=== PATIENT | female | born 1970 | race Caucasian/White ===

== ENCOUNTER 2016-06-15 07:48 | Inpatient (IN) | payer OTHER ==
--- NOTE | 2016-06-12 09:09 | HP ---
DATE OF CLINIC: 06/03/2016 NILESH ALLRED : 1970 PLANNED PROCEDURE: Left Knee Unicompartmental Arthroplasty DATE OF PROCEDURE: June 15, 2016 SURGEON: Dr. Brian Melgar PCP: Dr. Chun Vickers HISTORY OF PRESENT ILLNESS Nilesh Allred is a 46 year old female. * Medication list reviewed with patient allergy list reviewed with patient. 46-year-old female known to me for degenerative disease of her left knee. This is primarily involving the medial compartment. A previous outside MRI scan is consistent with a possible radial tear of the body and posterior horn of the medial meniscus as well as medial compartment degenerative changes. She has some mild spurring of the patella as well as what are described as mild changes of the articular cartilage of the patellofemoral joint. When I saw her on 10/09/14 we discussed management options. She elected viscosupplementation which she completed in November of 2014 with mild improvement. Unfortunately overall her symptoms have progressed, primarily medial weightbearing related deep pain with some rest discomfort. It is much more notable at startup. Her mechanical symptoms are not as limiting. She does not have any radicular symptoms. No problems on the contralateral side. No hip pain. She is wondering about definitive management options including UKA vs TKA. We discussed both operative and non-operative management and she has elected to proceed with surgical intervention. She presents today preoperatively. 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 She is managed by an oncologist at [facility], Dr. Cervantes, with topical treatment. She also has hypothyroidism. She is a non-smoker. CURRENT MEDICATION * control Unknown Type Tablet 1 once a day 0 days, 0 refills * Gentamicin Sulfate 0.3 % Ointment as directed 7 days, 0 refills * Levothyroxine Sodium 88 MCG Tablet 1 once a day 90 days, 0 refills * Minocycline HCl 100 MG Tablet as directed 60 days, 0 refills * Spironolactone 100 MG Tablet 1 once a day 90 days, 0 refills * Targretin 1 % Gel as directed 30 days, 0 refills PAST MEDICAL/SURGICAL HISTORY Reported: Medical: A history of cancer lymphoma MF-T, history of Arthritis knees, hips, and back, and Thyroid Disorder on meds. Surgical / Procedural: Prior surgery Left ankle pinning 1983 pin in left ankle removed 2003. SOCIAL HISTORY Behavioral: Didn't quit. Never smoked. Smoking status: Never smoker. Alcohol: Alcohol 1-2 drinks a week and alcohol use a social drinker. Work: Occupation corporate staff accountant. ALLERGIES * Narcotic Pain Medicine FAMILY HISTORY 2 children living Family medical history Mother: osteoarthritis, rheumatoid arthritis Father: stroke, osteoarthritis, HBP, Thyroid disease, rheumatoid arthritis REVIEW OF SYSTEMS Systemic: No fever and no recent weight change. Head: No head symptoms. Cardiovascular: No cardiovascular symptoms. Pulmonary: No pulmonary symptoms. Gastrointestinal: No gastrointestinal symptoms. Psychological: No psychological symptoms. Skin: No skin lesions and no rash. PHYSICAL FINDINGS * Vitals taken 06/03/2016 09:23 am BP-Sitting R 121/73 mmHg 100 - 120/56 - 80 BP Cuff Size Regular Pulse Rate-Sitting 63 bpm 50 - 100 Temp-Oral 98.9 F 96 - 101 Height 68.5 in 59 - 69 Weight 151 lbs 98 - 183 Body Mass Index 22.6 kg/m2 Body Surface Area 1.82 m2 Pain Level 4 Ears, Nose, Throat: * ENT: normal. Lungs: * Clear to auscultation. Cardiovascular: Heart Rate And Rhythm: * Normal. Abdomen: * Normal. Neurological: Motor: * Dominant Hand = Left Hand. Patient is a well-developed, well-nourished female in no acute distress, normal-appearing mood and affect. She has a normal, symmetric, heel-to-toe gait, although stiff-legged, antalgic startup. On standing she has neutral alignment. Left knee exam shows skin integrity to be well-preserved. She does have an area separate from the knee and over the leg of some discoloration and thickened macular appearance that she describes as a portion of the presentation of her cutaneous lymphoma. She has a more significant area on the contralateral knee, otherwise no swelling or gross effusion. Motion is 5-120 degrees. She is tender over the medial aspect of the knee, mildly increased with Estrella's, non-focal. NT lateral and no pain with patellar compression. Patella tracks well. Ligamentous exam is intact for cruciates and collaterals. Mildly tender over the anteromedial proximal tibia. Calf is soft and NT. Distal light touch sensation and motor function are grossly intact and symmetric. Pulses are palpable. Gentle rotation of the hip is non-irritable. Contralateral knee shows non-irritable full motion. TESTS 4 views of the left knee were obtained 03/10/16 and show significant medial compartment narrowing with some progression compared to prior films from 08/22/14. Lateral compartment is relatively well preserved. Minimal spurring at the patellofemoral articulation. ASSESSMENT DJD, left knee, involving primarily the medial compartment. PREVIOUS TESTS * Test: CBC WITH DIFF Report Date: 05/20/2016 WBC 4.7 10*3/mL MCV 91.4 fL BASOPHIL 0.8 % RBC 4.41 10*6/uL NEUTROPHILS 54.1 % MCH 30.2 pg MCHC 33.0 g/dL RDW 12.4 % PLATELET COUNT 244 10*3/mL IMM NEUT % 0.2 % IMM NEUT # 0.0 10*3/mL MONOCYTES 5.9 % EOSINOPHIL 4.4 % High HCT 40.3 % HGB 13.3 g/L LYMPHOCYTE 34.6 % ANC 2.6 10*3/mL * Test: PROTHROMBIN TIME Report Date: 05/20/2016 PROTIME 10.4 s INR 0.99 * Test: PARTIAL THROMBOPLASTIN TIME Report Date: 05/20/2016 APTT 26.1 s * Test: URINALYSIS Report Date: 05/20/2016 GLUCOSE NEGATIVE PH,URINE 6.0 SPEC. GRAVITY 1.020 KETONE NEGATIVE NITRITE NEGATIVE BLOOD NEGATIVE BILIRUBIN NEGATIVE APPEARANCE CLEAR PROTEIN NEGATIVE COLOR YELLOW LEUK ESTERASE NEGATIVE UROBILINOGEN NORMAL * Test: COMPREHENSIVE METABOLIC PANEL Report Date: 05/20/2016 ALT/SGPT 10 U/L ALBUMIN 4.7 g/dL ALB/GLOB RATIO 1.7 BUN 16 mg/dL BUN/CREAT RATIO 18 CALCIUM 10.1 mg/dL GLUCOSE 140 mg/dL High CREATININE 0.9 mg/dL SODIUM 137 meq/L POTASSIUM 4.2 meq/L CHLORIDE 99 meq/L CARBON DIOXIDE 30 meq/L ANION GAP 12 meq/L TOT PROTEIN 7.4 g/dL GLOBULIN 2.7 g/dL BILI,TOTAL 1.2 mg/dL High AST/SGOT 16 U/L ALK PHOSPHATASE 55 U/L GFR 67 * Test: MRSA SCREEN Report Date: 05/21/2016 MRSA SCREEN NEGATIVE * Test: MSSA SCREEN Report Date: 05/21/2016 MSSA SCREEN NEGATIVE FOR STAPHYLOCOCCUS AUREUS THERAPY * Patient not eligible for fall risk assessment. PLAN * Unilateral primary osteoarthritis, left knee Physical Therapy: [facility] [phone] * OTHER TraMADol HCl 50 MG TABS, 1or 2 tablets every 4 to 6 hours as needed, 5 days, 0 refills CeleBREX 200 MG CAPS, 1 once a day, 30 days, 0 refills CeleBREX 200 MG CAPS, 1 once a day, 30 days, 0 refills * Knee replacement -partial,(unicompartmental arthroplasty) on the left Discussed with patient in detail the limitations, expectations as well as risks and possible complications of surgery including, but not limited to wound problems or infection, neurovascular injury, continued knee pain or dysfunction, including the possibility of prosthetic wear or failure over time that may require additional operative or non-operative treatment. Patient also realizes the perioperative risks including risks associated with anesthesia and would like to proceed. A full PAR conference was held, questions and concerns addressed and informed consent was obtained. Patient will be sent from my office for completion of the preoperative workup. Patient will enteric coated aspirin postoperatively for DVT prophylaxis as per risk stratification protocol.use Patient would like to perform their postop PT at [facility] with total knee arthroplasty protocol. CARE TEAM Chun Vickers MD Family Practice Rigo Mathew MD Dermatology [facility], [facility] JOSEY/sg
[2016-06-15] MEDS ORDERED: TRANEXAMIC ACID 1,000 MG in SODIUM CHLORIDE 0.9% 100 ML IV PRN (08:00)
[2016-06-15] MEDS ORDERED: CLONIDINE HCL 0.1 MG/24 HR (7 DAY PATCH) TD SCH (08:00)
[2016-06-15] MEDS ORDERED: CELECOXIB 200 MG CAPSULE PO ONE (08:00)
[2016-06-15] MEDS ORDERED: BUPIVACAINE 0.25% (MDV) 24 ML, MORPHINE SULFATE 8 MG, EPINEPHRINE 0.3 MG in SODIUM CHLO... IF PRN (08:00)
[2016-06-15] MEDS ORDERED: POLYMYXIN B SULFATE 500,000 UNITS, BACITRACIN 25,000 UNITS in SODIUM CHLORIDE 3 L IRRIG... IR PRN (08:00)
[2016-06-15] MEDS ORDERED: OXYCODONE HCL 10 MG TAB.SR PO ONE ×2 (08:00→08:53)
[2016-06-15] MEDS ORDERED: BUPIVACAINE 0.25% (MDV) 20 ML in SODIUM CHLORIDE 0.9% FLUSH 20 ML IF PRN (08:00)
[2016-06-15] MEDS ORDERED: GABAPENTIN 600 MG TABLET PO ONE (08:00)
[2016-06-15] MEDS ORDERED: CEFAZOLIN SODIUM 2 GRAM PREMIX 100 ML IV PRN (08:00)
[2016-06-15] MEDS ORDERED: FAMOTIDINE 20 MG TABLET PO ONE (08:00)
[2016-06-15] MEDS ORDERED: TRAMADOL HCL 50 MG TABLET PO ONE (08:00)
[2016-06-15] MEDS ORDERED: ONDANSETRON 4 MG/2ML 2 ML VIAL IV ONE (08:00)
[2016-06-15] MEDS ORDERED: LACTATED RINGERS 1,000 ML ONE (08:39)
[2016-06-15] MEDS ORDERED: IV START KIT ONE (08:40)
[2016-06-15] MEDS ORDERED: CEFAZOLIN SODIUM 2 GRAM PREMIX 100 ML IV ONE (08:40)
[2016-06-15] MEDS ORDERED: FENTANYL 100 MCG/2 ML VIAL ONE (08:45)
[2016-06-15] MEDS ORDERED: LIDOCAINE 2% (PRES FREE) 5 ML VIAL ONE (08:45)
[2016-06-15] MEDS ORDERED: PROPOFOL 20 ML IV ONE ×4 (08:45→12:10)
[2016-06-15] MEDS ORDERED: MIDAZOLAM HCL 5 MG/5 ML VIAL ONE (08:45)
[2016-06-15] MEDS ORDERED: ONDANSETRON 4 MG/2ML 2 ML VIAL ONE (08:53)
[2016-06-15] MEDS ORDERED: TRAMADOL HCL 50 MG TABLET ONE (08:53)
[2016-06-15] MEDS ORDERED: FAMOTIDINE 20 MG TABLET ONE (08:53)
[2016-06-15] MEDS ORDERED: CELECOXIB 200 MG CAPSULE ONE (08:54)
[2016-06-15] MEDS ORDERED: CLONIDINE HCL 0.1 MG/24 HR (7 DAY PATCH) TD ONE (08:54)
[2016-06-15] MEDS ORDERED: GABAPENTIN 600 MG TABLET ONE (08:54)
[2016-06-15] MEDS ORDERED: ROPIVACAINE 0.5% 30 ML VIAL ONE (09:21)
[2016-06-15] MEDS ORDERED: NERVE BLOCK PROCEDURAL TRAY 1 EACH ONE (09:21)
[2016-06-15] MEDS ORDERED: METHYLENE BLUE 1% 1ML VIAL ONE (10:02)
[2016-06-15] MEDS ORDERED: SPINAL PROCEDURAL TRAY 1 EACH ONE (10:24)
[2016-06-15] MEDS ORDERED: EPHEDRINE SULFATE UD SYR 25 MG 25 MG/5 ML SYRINGE IV ONE (11:06)
[2016-06-15] MEDS ORDERED: DEXAMETHASONE SOD PHOS 4 MG/1 ML VIAL ONE ×2 (11:07→11:08)
[2016-06-15] MEDS ORDERED: NALOXONE HCL 0.4 MG/ML VIAL IV PRN (11:16)
[2016-06-15] MEDS ORDERED: FENTANYL 100 MCG/2 ML VIAL IV PRN (11:16)
[2016-06-15] MEDS ORDERED: ON-Q PUMP/ROPIVACAINE 0.2% 450 ML in PREMIX BAG 1 EACH NB PRN ×2 (11:16→13:15)
[2016-06-15] MEDS ORDERED: ATROPINE SULFATE 0.4 MG/1 ML VIAL IV PRN (11:16)
[2016-06-15] MEDS ORDERED: PROMETHAZINE HCL 25 MG/ML VIAL IM PRN (11:16)
[2016-06-15] MEDS ORDERED: ONDANSETRON 4 MG/2ML 2 ML VIAL IV PRN ×2 (11:16→13:15)
[2016-06-15] MEDS ORDERED: HYDROMORPHONE HCL 1 MG/ML SYRINGE IV PRN (11:16)
[2016-06-15] MEDS ORDERED: LACTATED RINGERS 1,000 ML IV SCH (11:30)
[2016-06-15] MEDS ORDERED: ON-Q PUMP/ROPIVACAINE 0.2% 450 ML ONE (12:13)
--- NOTE | 2016-06-15 12:39 | PCMBPN ---
Brief Post Op Note: Date of Procedure: 06/15/16 Preoperative Diagnosis: DJD left knee Postoperative Diagnosis: 1. [Same] Procedure: left knee UKA Surgeon: Brian Melgar MD Assist:Олег (TEOFILO) Anesthesia: spinal/add block (Shin) Condition: stable to PAR Complications: none IV Fluids: 2500 mLs of LR Urine Output: 700mLs Estimated Blood Loss: 150 mLs Tourniquet Time: ~75 min Specimens: [N/A] Implants: ZUK Drains: none
[2016-06-15] MEDS ORDERED: HYDROMORPHONE HCL 0.5 MG/0.5 ML SYRINGE IV PRN (13:15)
[2016-06-15] MEDS ORDERED: CALCIUM CARBONATE 500 MG TAB.CHEW PO PRN (13:15)
[2016-06-15] MEDS ORDERED: TEMAZEPAM 15 MG CAPSULE PO PRN (13:15)
[2016-06-15] MEDS ORDERED: HYDROXYZINE PAMOATE 25 MG CAPSULE PO PRN (13:15)
[2016-06-15] MEDS ORDERED: KETOROLAC TROMETHAMINE 30 MG/ML 1 ML VIAL IV PRN (13:15)
--- NOTE | 2016-06-15 13:19 | RAD ---
LEFT KNEE 2 VIEWS HISTORY: Status post left knee arthroplasty. Frontal and lateral radiographs of the left knee. COMPARISON: 03/10/2016. FINDINGS: POSTPROCEDURAL CHANGE: Status post medial compartment knee arthroplasty. ALIGNMENT: Grossly anatomic. Correction of varus annulation FRACTURE: None identified. ADDITIONAL POSTPROCEDURAL FINDINGS: Soft tissue gas and overlying brace. IMPRESSION: Grossly unremarkable immediate post arthroplasty appearance of the left knee.
[2016-06-15] MEDS ORDERED: PUMP TUBING ONE (14:35)
[2016-06-15] MEDS: D5 1/2NS with 20 mEq KCL 1,000 ML IV SCH ×2 (14:45→21:34)
[2016-06-15] MEDS: ACETAMINOPHEN 500 MG TABLET PO SCH ×2 (16:28→23:58)
[2016-06-15] MEDS ORDERED: SCOPOLAMINE 1.5 MG/72 HR 1 EACH PATCH TD SCH (17:15)
[2016-06-15] MEDS: CEFAZOLIN SODIUM 1 GRAM PREMIX 1 G in Premix (D5W) 50 ml 1 EACH IV SCH (17:31)
[2016-06-15] MEDS ORDERED: TRAMADOL HCL 50 MG TABLET PO PRN (19:30)
[2016-06-15] MEDS ORDERED: PROMETHAZINE HCL 12.5 MG in SODIUM CHLORIDE 0.9% 50 ML IV PRN ×2 (19:44→20:30)
[2016-06-15] MEDS: ASCORBIC ACID 500 MG TABLET PO SCH (21:29)
[2016-06-15] MEDS: DOCUSATE SODIUM 100 MG CAPSULE PO SCH (21:29)
[2016-06-16] MEDS: CEFAZOLIN SODIUM 1 GRAM PREMIX 1 G in Premix (D5W) 50 ml 1 EACH IV SCH (01:45)
[2016-06-16 05:54] LABS: HEMATOCRIT 36.5 % (37.0-47.0); HEMOGLOBIN 12.1 gm/l (12.0-16.0); MEAN CELL VOLUME 89.7 fl (81.0-99.0); MEAN CORPUSCULAR HEMOGLOBIN 29.7 pg (27.0-31.0); MEAN CORPUSCULAR HGB CONC 33.2 g/dl (33.0-37.0); RED CELL DISTRIBUTION WIDTH 12.2 % (11.5-14.5)
[2016-06-16] MEDS: D5 1/2NS with 20 mEq KCL 1,000 ML IV SCH ×2 (06:07→14:27)
[2016-06-16] MEDS: ACETAMINOPHEN 500 MG TABLET PO SCH ×3 (06:12→16:16)
[2016-06-16] MEDS ORDERED: LEVOTHYROXINE SODIUM 88 MCG TABLET PO SCH (07:30)
[2016-06-16] MEDS ORDERED: REMOVE PATCH 1 EACH UNIT TD SCH (08:00)
--- NOTE | 2016-06-16 08:28 | PDOC43 ---
- Subjective Subjective: Reports Pain Tolerable (very little discomfort- no narcotics. Has had nerve block rate at 12/hr overnight), Denies Nausea (resolved overnight), Denies Vomiting (difficulty yesterday, but resolved overnight. Taking some PO this AM without difficulty) - Objective Vital Signs Temperature 98.1 F 06/16/16 07:39 Pulse Rate 61 06/16/16 07:39 Respiratory Rate 16 06/16/16 07:39 Blood Pressure 104/64 06/16/16 07:39 O2 Saturation by Pulse Oximetry 100 06/16/16 07:39 Oxygen Delivery Method Nasal Cannula Oxygen Flow Rate 2 Laboratory 06/16/16 05:30 06/16/16 05:30 06/16/16 05:30 RBC 4.07 L Active Medication Orders Category Date Time Status Acetaminophen [Tylenol] Med 06/15/16 16:00 Active 1,000 mg PO Q6H Ascorbic Acid [Vitamin C] Med 06/15/16 21:00 Active 500 mg PO BID Aspirin (Enteric Coated) [Ecotrin] Med 06/16/16 09:00 Active 325 mg PO DAILY Bisacodyl [Dulcolax] Med 06/18/16 12:42 Active 10 mg WA DAILY PRN Calcium Carbonate [Tums] Med 06/15/16 13:15 Active 1,000 - 2,000 mg PO Q2H PRN Celecoxib [Celebrex] Med 06/16/16 09:00 Active 200 mg PO DAILY D5 1/2NS with 20 mEq KCL [D51/2NS with 20 mEq KCL] 1, Med 06/15/16 13:15 Active 000 ml IV 125 mls/hr Docusate Sodium [Colace] Med 06/15/16 21:00 Active 100 mg PO BID Hydromorphone HCl [Dilaudid] Med 06/15/16 13:15 Active 0.5 mg IV Q1H PRN Hydroxyzine Pamoate [Vistaril] Med 06/15/16 13:15 Active 25 - 50 mg PO Q4H PRN Ketorolac Tromethamine [Toradol] Med 06/15/16 13:15 Active 30 mg IV Q6H PRN Levothyroxine Sodium [Levothroid] Med 06/16/16 07:30 Active 88 mcg PO QAMAC Magnesium Hydroxide [Milk of Magnesia] Med 06/16/16 12:42 Active 30 ml PO DAILY PRN Minocycline HCl [Minocin] Med 06/16/16 09:00 Active 100 mg PO DAILY Multivitamins [One-A-Day] Med 06/16/16 09:00 Active 1 tab PO DAILY On-Q Pump/Ropivacaine 0.2% 450 ml Med 06/15/16 13:15 Active Premix Bag [Premix Fluid] 1 each NB Q50H Ondansetron 4 mg/2ml Vial [Zofran] Med 06/15/16 13:15 Active 4 - 6 mg IV Q6H PRN Promethazine HCl [Phenergan] 12.5 mg Med 06/15/16 20:30 Active Sodium Chloride 0.9% 50 ml IV Q4H Remove Patch Med 06/16/16 12:42 Once 1 each TD X1 ONE Scopolamine 1.5 mg/72 Hr [Transderm-Scop] Med 06/15/16 17:15 Active 1 each TD Q72H Sodium Chloride 0.9% Flush [Normal Saline 10ml Flush] Med 06/15/16 13:15 Active 10 - 50 ml IV PRN PRN Sodium Chloride 0.9% Flush [Normal Saline 10ml Flush] Med 06/16/16 09:00 Active 10 ml IV Q8HR Spironolactone [Aldactone] Med 06/16/16 09:00 Active 100 mg PO DAILY Temazepam [Restoril] Med 06/15/16 13:15 Active 15 mg PO BEDTIME PRN Tramadol HCl [Ultram] Med 06/15/16 19:30 Active 50 mg PO Q6H PRN Intake and Output 06/14/16 06/15/16 06/16/16 23:59 23:59 23:59 Intake Total 2867 450 Output Total 1400 2500 Balance 1467 -2050 General: Afebrile, No Acute Distress HEENT: Atraumatic Lungs: Normal Air Movement Cardiovascular: Regular Rate and Rhythm Skin: Normal Color, Warm, Dry, Intact Neurological: Grossly Intact, Alert, Oriented x 4 Psych/Mental Status: Normal Affect, Normal Mood - Left Lower Extremity Incision: Dressing Clean/Dry/Intact, No Drainage Motor: Extensor Hallucis Longus: 5/5, Tibialis Anterior: 5/5, Gastrocnemius: 5/5 , Peroneals: 5/5 Gross Sensation to Light Touch: Present: Deep Peroneal Nerve, Superficial Peroneal Nerve, Medial Plantar Nerve, Lateral Plantar Nerve, Sural Nerve Capillary Refill: < 3 Seconds Motion: bedside AROM with HS 0-60 PROM 0-80 - Problems (1) Status post left unicompartmental knee replacement Status: AcuteAssessment/Plan: Doing well POD#1. Initial N/V resolved 1. Physical Therapy: per protocol 2. Pain Control: decreased rate of nn block to 10 and reviewed instructions. Will avoid narcotics per patient request and tolerance 3. DVT Prophylaxis: ECASA/mechanicals/mobilization per risk stratification protocol 4. Disposition: will recheck this afternoon. Reasonable chance for D/C today if doing well 5. Medical Issues: stable
[2016-06-16] MEDS ORDERED: CELECOXIB 200 MG CAPSULE PO SCH (09:00)
[2016-06-16] MEDS ORDERED: ASPIRIN (ENTERIC COATED) 325 MG TABLET.EC PO SCH (09:00)
[2016-06-16] MEDS ORDERED: MINOCYCLINE HCL 100 MG CAPSULE PO SCH (09:00)
[2016-06-16] MEDS ORDERED: SPIRONOLACTONE 100 MG TABLET PO SCH (09:00)
[2016-06-16] MEDS ORDERED: MULTIVITAMINS 1 TAB TABLET PO SCH (09:00)
[2016-06-16] MEDS: ASCORBIC ACID 500 MG TABLET PO SCH (09:10)
[2016-06-16] MEDS: DOCUSATE SODIUM 100 MG CAPSULE PO SCH (09:10)
[2016-06-16 10:20] VITALS: BMI 22.0
[2016-06-16 11:23] VITALS: BP 100/58
[2016-06-16] MEDS ORDERED: MAGNESIUM HYDROXIDE 30 ML UDCUP PO PRN (12:42)
[2016-06-16] MEDS ORDERED: REMOVE PATCH 1 EACH UNIT TD ONE (12:42)
--- NOTE | 2016-06-17 09:30 | OP ---
DHARMESH ALLRED [id number] : 1970 DATE OF SURGERY: June 15, 2016 PREOPERATIVE DIAGNOSIS: Left knee medial compartmental DJD POSTOPERATIVE DIAGNOSIS: SAME PROCEDURE: Left Knee Medial Unicompartmental Arthroplasty COMPONENTS: ZUK size 3 tibial component with an 8mm articular insert and a size D femoral component. SURGEON: Brian Melgar M.D. SALES ACCOUNT REPRESENTATIVE: Олег QUEZADA) ANESTHESIA: Spinal plus adductor nerve block per Shin ESTIMATED BLOOD LOSS: 150 cc IV FLUID REPLACEMENT: per anesthesia, 2.5 liters crystalloid. URINE OUTPUT: 700 cc DRAINS: None TOURNIQUET TIME: Approximately 75 minutes COMPLICATIONS: None HISTORY: Briefly, patient is a 46-year-old female with clinical and radiographic evidence of advanced degenerative disease of the medial compartment of the left knee. Patient has failed traditional non-operative management and desire elective unicompartmental arthroplasty vs total knee arthroplasty. For additional details, please refer to the previously dictated Preoperative History and Physical Examination. A PAR conference was held, questions and concerns were addressed, and informed consent was obtained. FINDINGS: Significant degenerative changes with central necrotic appearing full thickness loss of the femur. There was bony discoloration of the medial tibia and medial femur, uncertain significance of this and whether it is somehow related to her underlying lymphoma and treatment. She had a spared patellofemoral and lateral compartment. Under anesthesia she had full extension. Patella tracked well. PROCEDURE: The patient was taken to the operating room after the placement of a spinal anesthetic and regional nerve block. They were placed supine on the operating room table, a tourniquet was applied to the proximal thigh and the left lower extremity was prepped and draped out in the usual sterile fashion. Preoperative IV antibiotics were given empirically. Intraoperative DVT prophylaxis consisted of contralateral foot pumps. Personal filtration suits were used as was a closed room environment. At this point a WHO timeout was taken. Surgical site was identified and confirmed. The leg was then elevated and the tourniquet inflated after gravity exsanguination. Tranexamic acid was infiltrated over 10 minutes prior to incision, 1 gram dose per protocol. A similar 2nd dose was given at initiation of closure. With the knee flexed, an anteromedial incision was made from the level of the tibial tubercle to the superior pole of the patella. A medial arthrotomy was performed. A medial subperiosteal proximal tibial release was performed and a portion of the anterior fat pad was excised to improve visualization. We evaluated the involvement of the patellofemoral compartment as well as the lateral compartment. We confirmed the ACL was intact. The anterior horn of the medial meniscus was excised. Minimally invasive instrumentation and philosophy were used throughout the procedure in an attempt to decrease the extent of soft tissue disruption/damage. Patient matched cutting blocks were also used as per our preoperative plan. The PSI tibia block was then positioned and secured to the bone. We confirmed that the alignment matched our preoperative plan and made the proximal tibial cut with a sagittal and reciprocating saw. We removed medial marginal osteophytes. Attention was then directed to the femur. The PSI distal femoral block was applied and secured to bone. We confirmed alignment as per our preoperative plan and the distal femoral cut made. We then evaluated the extension gap. We confirmed the size of the femur and placed the appropriate posterior and posterior chamfer cutting block. These cuts were made as was drilling of the femoral lugs. Residual marginal osteophytes were removed. We then confirmed the flexion and extension gaps were balanced. It was somewhat tight both in flexion and extension. I took an additional 2mm re-cut off the tibia. This was then much improved with full extension. Tibia was then sized. We passed a small osteotome at the lateral border and placed our tibial trial. Tibial lugs were drilled and we trialed the entire construct obtaining full extension and smooth rollback. Satisfied, double antibiotic pulsatile lavage was used to irrigate the knee and clean the cancellous karthik interstices which were then carefully dried. Periarticular injection was done at this point per protocol of the posterior capsule, posteromedial knee and synovium. A single dose of high viscosity, methylene blue-stained, antibiotic impregnated polymethylmethacrylate was used to cement the tibial followed by femoral components. The knee was held in extension while the cement cured. All residual methacrylate was meticulously removed. Attention was then directed towards closure. Tranexamic acid was infiltrated over 10 minutes, dose per protocol. We irrigated and the retinaculum was closed with a running #2 absorbable StratoFix suture. A second periarticular injection was done at this point per protocol. The repair was checked in maximum flexion. We then lightly irrigated the subcutaneous tissue and closed with interrupted 2-0 and 3-0 Vicryl Plus. The skin was then re-approximated with surgical clips. A sterile Aquacel dressing was applied followed by a compression dressing. The patient was then transferred to their hospital bed and sent to the post anesthesia recovery room in stable condition. They tolerated the procedure well. Sponge, instrument, and needle count were correct. CC: Chun Vickers MD [facility]
--- NOTE | 2016-06-18 10:13 | DS ---
DHARMESH ALLRED [id number] : 1970 DATE OF ADMISSION: June 15, 2016 DATE OF DISCHARGE: June 16, 2016 DISCHARGE DIAGNOSES: Left knee medial compartment osteoarthritis HOSPITAL PROCEDURES: Left medial unicompartmental knee arthroplasty SURGEON: Brian Melgar M.D. BRIEF HISTORY: Patient is a 46-year-old female with clinical and radiographic evidence of advanced DJD of the medial compartment of their left knee. For the full history please see the chart note. BRIEF HOSPITAL COURSE: Patient was admitted on 06/15/16. Dr. Brian Melgar performed a left total knee arthroplasty. They were moved to the recovery room in stable condition. They were given 4 doses of antibiotic for empiric coverage. DVT prophylaxis consisted of enteric coated aspirin, 325mg, EMY hose and AV foot pumps. PT was instituted postop day 0 with left total knee arthroplasty protocol, weightbearing as tolerated. Their incision site remained benign, their vital signs remained stable and they remained neurally and vascularly intact through the duration of the stay. They were discharged home on postop day 1 to continue their outpatient PT at [facility] with left total knee arthroplasty protocol, weightbearing as tolerated. DISCHARGE INSTRUCTIONS: 1. Keep the wound site clean. May shower and pat incision site dry, but do not soak until f/u. Call office with any questions or concerns and f/u for your dressing change as scheduled 1 week postop. 2. Continue the use of EMY hose bilaterally. 3. Cooling unit 3-4 times daily for 30 minutes duration. 4. Outpatient PT at [facility] for left total knee arthroplasty protocol, weightbearing as tolerated. 5. Patient was discharged from the hospital with an adductor nerve catheter to be removed on postop day 4. MEDICATIONS: 1. Patient is to resume normal preop medications. 2. Anti-coagulation will be with enteric coated aspirin, 325mg daily for 6 weeks. 3. Pain management will be with Tramadol, 50mg every 6 hours prn pain and Celebrex, 200mg daily. 4. Patient was also advised on utilization of a multi-vitamin with mineral daily as well as Vitamin C, 500mg daily for 1 month. 5. Patient encouraged to take an iron supplement in the form of ferrous sulfate, 325mg daily for 4 weeks. 6. Colace, 100mg, b.i.d. until regular bowel movement. FOLLOW-UP: Please return to the clinic as scheduled for your first scheduled postop check. Prior to that point in time please call with any questions or concerns. TR/casey CC: Miroslava Aldrich [facility] Marielle Vickers MD
[2016-06-18] MEDS ORDERED: BISACODYL 10 MG SUP PR PRN (12:42)
== END 2016-06-16 16:40 | disposition home or self-care (01) | DRG 470 ==
LOC: OR 07:53 → MS 13:19
PROVIDERS: ADMIT Orthopaedic Surgery; ATTEND Orthopaedic Surgery
PROC: 0SRD0L9 Replacement of Left Knee Joint with Medial Unicondylar Synthetic Substitute, Cemented, Open Approach (ICD-10-PCS; principal; 2016-06-15)
DX: M17.12 Unilateral primary osteoarthritis, left knee (principal); C84.A0 Cutaneous T-cell lymphoma, unspecified, unspecified site; C84.09 Mycosis fungoides, extranodal and solid organ sites; E03.9 Hypothyroidism, unspecified; Z88.5 Allergy status to narcotic agent